=== PATIENT | female | born 1970 | race Caucasian/White ===

== ENCOUNTER → 2017-03-19 | Outpatient (CLI) | payer OTHER ==
[~2017-03-19] MED LIST: ACIDCAP PO; ASCO500C PO; ASPITAB PO; FLUT1SPR5 EACH NARE; IMIT50TA PO; ONETAB13 PO; PROBCAP4 PO; PROP10TA26 PO; SUMA100T2 PO; TOPA25TA8 PO
--- NOTE | 2017-03-21 06:25 | EKG ---
Date Performed: 03/19/2017 Time Performed: 13:20:45 PTAGE: 47 years EKG: Sinus rhythm INCOMPLETE RIGHT BUNDLE BRANCH BLOCK BORDERLINE ECG PREVIOUS TRACING : 03/01/2015 13.52 Compared to prior tracing no significant change DOCTOR: Best Barreto Interpretating Date/Time 03/21/2017 06:23:50
== END ==
LOC: CPRE 12:56
PROVIDERS: ATTEND Obstetrics & Gynecology
DX: Z01.810 Encounter for preprocedural cardiovascular examination (principal); D39.10 Neoplasm of uncertain behavior of unspecified ovary; R97.1 Elevated cancer antigen 125 [CA 125]; R94.31 Abnormal electrocardiogram [ECG] [EKG]
CPT/HCPCS: 93005

== ENCOUNTER 2017-03-21 10:45 | Observation (INO) | payer OTHER ==
[~2017-03-21] VITALS: Ht 170.2 cm; Wt 55.2 kg
[~2017-03-21 10:45] MED LIST changes: -IMIT50TA PO; -PROBCAP4 PO; -PROP10TA26 PO
--- NOTE | 2017-03-21 12:00 | MH ---
cc: YESSI BARRAZA DATE OF ADMISSION 03/21/2017 DATE OF 1970 ADMISSION DIAGNOSIS Right ovarian cyst with recurrent menorrhagia and some dysmenorrhea. HISTORY OF PRESENT ILLNESS The patient is a 47-year-old white female para 3-0-5-3 had endo ablation ablation in 2014. She has had an MRI of the pelvis on 01/18/2017 for right hip and groin pain which showed enlargement of the right ovary over the last previous six months. She also has recurrent bleeding, some dysmenorrhea and elevated CA-125. She is now admitted for surgical evaluation. PAST MEDICAL HISTORY Previous surgery: 1. She had sinus surgery 2002. 2. In 2004 she had two spontaneous abortions and required D&C both times. 3. She had vaginal in 2005. 4. Spontaneous in 2006. No D&C. 5. Spontaneous in 2007 with D&C. 6. Vaginal in 2010. 7. Vaginal 2011. 8. Spontaneous 2014, no D&C 9. In 2014 she had Novasure ablation and laparoscopic tubal. MEDICATIONS 1. Vitamins. 2. Topamax. ALLERGIES None. TRANSFUSIONS None. SOCIAL HISTORY , homemaker. Alcohol, tobacco and drugs none. FAMILY HISTORY Her family history is noncontributory. PHYSICAL EXAMINATION GENERAL: Well-nourished, well-developed white female. VITAL SIGNS: Stable. HEENT: Examination is normal. CHEST: Clear. HEART: Regular rate. BREASTS: Symmetrical. ABDOMEN: Benign. PELVIC: Normal external genitalia and Bartholin's, urethral, [place]'s. Vagina is normal. Cervix is normal. Right adnexa is cystic. Left is normal. ASSESSMENT As above. PLAN She is now admitted for laparoscopy, planned LASH procedure, possible right salpingo-oophorectomy. While in the office I explained the procedures, the risks, benefits and complications and the patient would like to proceed. She would like to preserve left ovary if normal. MD BRET Ma/SHEILA /5:11 PM /11:57 AM LILIAN
[2017-03-21] MEDS ORDERED: ACETAMINOPHEN 1000 MG/100 ML VIAL IV ONE (12:11)
[2017-03-21] MEDS ORDERED: ceFAZolin 2 GM PREMIX 50 ML ONE (12:11)
[2017-03-21 12:12] VITALS: BP 96/69; PULSE 79; RESP 20; TEMP 98.8; O2SAT 98
[2017-03-21] MEDS ORDERED: POVIDONE IODINE 5% (ANTISEPSIS KIT) 4 APPLICATIONS EACH NARE PRN (12:45)
[2017-03-21] MEDS ORDERED: METOPROLOL TARTRATE 25 MG TAB PO PRN (12:45)
[2017-03-21] MEDS ORDERED: INSULIN HUMAN REGULAR 1,000 UNITS/10 ML VIAL SQ PRN (12:45)
[2017-03-21] MEDS ORDERED: SODIUM CHLORID 0.9% 500 ML IV PRN (12:45)
[2017-03-21] MEDS ORDERED: ceFAZolin 2 GM PREMIX 50 ML IV SCH (12:45)
[2017-03-21] MEDS ORDERED: ACETAMINOPHEN 1000 MG/100 ML VIAL IV SCH (12:45)
[2017-03-21] MEDS ORDERED: CHLORHEXIDINE GLUCONATE 2 % 1 PACK (2 CLOTHS) TOPICAL PRN (12:45)
[2017-03-21] MEDS ORDERED: LACTATED RINGER'S 1000 ML IV PRN (12:45)
[2017-03-21] MEDS ORDERED: DEXAMETHASONE SOD PHOS 4 MG/ML VIAL ONE (12:50)
[2017-03-21] MEDS ORDERED: FAMOTIDINE 20 MG/2 ML VIAL ONE (12:50)
[2017-03-21] MEDS ORDERED: MIDAZOLAM HCL 2 MG/2 ML VIAL ONE (12:50)
[2017-03-21] MEDS ORDERED: APREPITANT 40 MG CAP ONE (12:50)
[2017-03-21] MEDS ORDERED: BUPIVACAINE HCL PF 0.5% 30 ML VIAL NERV BLOCK ONE (12:53)
[2017-03-21] MEDS ORDERED: fentaNYL CITRATE 250 MCG/5 ML AMP ONE (12:54)
[2017-03-21] MEDS ORDERED: DICLOFENAC SODIUM 37.5 MG/ML VIAL IV PUSH ONE (12:54)
[2017-03-21] MEDS ORDERED: PROPOFOL 200 MG/20 ML AMP IV ONE (13:05)
[2017-03-21] MEDS ORDERED: NEOSTIGMINE 3 MG/3 ML SYR IV ONE (13:05)
[2017-03-21] MEDS ORDERED: PHENYLEPH/NS 1000 MCG/10 ML SYR IV ONE (13:05)
[2017-03-21] MEDS ORDERED: KETOROLAC TROMETHAMINE 60 MG/2 ML (IM) VIAL IM ONE (13:06)
[2017-03-21] MEDS ORDERED: ONDANSETRON HCL 4 MG/2 ML VIAL IV PUSH ONE (13:06)
[2017-03-21] MEDS ORDERED: LACTATED RINGER'S 1000 ML INJ 1,000 ML IV ONE (13:06)
[2017-03-21] MEDS ORDERED: ONDANSETRON HCL 4 MG/2 ML VIAL IV PRN (14:30)
[2017-03-21] MEDS ORDERED: ONDANSETRON ODT 4 MG TAB PO PRN (14:30)
[2017-03-21] MEDS ORDERED: SODIUM CHLORIDE 0.9% FLUSH 5 ML FLUSH FLUSH PRN (14:30)
[2017-03-21] MEDS ORDERED: diphenhydrAMINE HCL 25 MG CAP PO PRN (14:30)
[2017-03-21] MEDS ORDERED: PROMETHAZINE HCL 25 MG TAB PO PRN (14:30)
[2017-03-21] MEDS ORDERED: HYDROmorphone HCL PF 1 MG/ML VIAL IV PRN (14:30)
[2017-03-21] MEDS ORDERED: METOCLOPRAMIDE HCL 10 MG/2 ML VIAL IV PUSH PRN (14:30)
[2017-03-21] MEDS: KETOROLAC TROMETHAMINE 30 MG/ML (IVP) VIAL IVP SCH ×2 (15:00→22:55)
[2017-03-21] MEDS ORDERED: ONDANSETRON INJ 8 MG in DEXTROSE 5% IN WATER INJ 50 ML IV PRN ×2 (15:15)
[2017-03-21] MEDS ORDERED: DO NOT ADM ANY ANTICOAGULANT DRUGS PRN (15:15)
[2017-03-21] MEDS ORDERED: *morphine SULFATE 8 MG/ML PERIprocedure ONLY ONE (15:18)
[2017-03-21] MEDS: D5-1/2 NS + KCL 20 MEQ INJ 1,000 ML IV SCH ×2 (15:20→22:56)
[2017-03-21] MEDS ORDERED: SUMAtriptan SUCCINATE 50 MG TAB PO PRN (15:45)
[2017-03-21] MEDS: FLUTICASONE PROPIONATE 50 MCG/ACT 16 GM NASAL SPRAY NASAL SCH (15:49)
[2017-03-21 17:00] VITALS: BP 112/78; PULSE 99; RESP 14; TEMP 97.6; O2SAT 98
[2017-03-21] MEDS: DOCUSATE SODIUM 100 MG CAP PO SCH ×2 (17:00→21:00)
[2017-03-21 20:00] VITALS: BP 114/69; PULSE 85; RESP 17; TEMP 96.7; O2SAT 97
[2017-03-21] MEDS: SODIUM CHLORIDE 0.9% FLUSH 5 ML FLUSH FLUSH SCH (21:00)
[2017-03-21] MEDS ORDERED: ZOLPIDEM TARTRATE 5 MG TAB PO PRN (21:00)
[2017-03-21 21:24] LABS: HEMATOCRIT 35.4 % (35.0-46.0); REVIEW FLAG FINAL
[2017-03-21] MEDS: ACETAMINOPHEN 1000 MG/100 ML VIAL IV SCH (22:54)
[2017-03-21] MEDS: TOPIRAMATE 25 MG TAB PO SCH (22:55)
[2017-03-22] VITALS: BP 100/60; PULSE 80; RESP 18; TEMP 96.5; O2SAT 95
[2017-03-22] MEDS: ACETAMINOPHEN 1000 MG/100 ML VIAL IV SCH ×2 (01:28→03:49)
[2017-03-22] MEDS: KETOROLAC TROMETHAMINE 30 MG/ML (IVP) VIAL IVP SCH ×2 (01:28→10:08)
[2017-03-22] MEDS: D5-1/2 NS + KCL 20 MEQ INJ 1,000 ML IV SCH (03:50)
[2017-03-22 04:00] VITALS: BP 96/58; PULSE 80; RESP 18; TEMP 96.9; O2SAT 95
[2017-03-22 06:22] LABS: AUTOMATED NEUTROPHIL # 7.4 TH/MM3 (1.8-7.7); BASOPHIL % 0.3 % (0.0-2.0); HEMATOCRIT 36.3 % (35.0-46.0); HEMO FLAGS DIFF FINAL; LYMPH % 11.1 % (9.0-44.0); MEAN CELL VOLUME 92.9 FL (80.0-100.0); MEAN CORPUSCULAR HEMOGLOBIN 31.4 PG (27.0-34.0); MEAN CORPUSCULAR HGB CONC 33.8 % (32.0-36.0); MONO % 6.8 % (0.0-8.0); NEUT % 81.8 % (16.0-70.0); PLATELET COUNT 194 TH/MM3 (150-450); RED BLOOD COUNT 3.91 MIL/MM3 (4.00-5.30); RED CELL DISTRIBUTION WIDTH 12.9 % (11.6-17.2); WHITE BLOOD COUNT 9.1 TH/MM3 (4.0-11.0)
[2017-03-22 06:40] LABS: BICARBONATE 22.4 MEQ/L (21.0-32.0); POTASSIUM 3.6 MEQ/L (3.5-5.1)
--- NOTE | 2017-03-22 08:22 | HHI.DCPOC ---
Discharge Care Plan Report Symptoms to Your Doctor -Temperate above 100.5 degrees -Redness, of incision or excessive or foul smelling drainage -Unusual pain or calf pain -Increased vaginal bleeding -Painful or difficulty urinating -Feelings of extreme sadness or anxiety after 2 weeks Goals to Promote Your Health * To prevent worsening of your condition and complications * To maintain your health at the optimal level Directions to Meet Your Goals Take your medications as prescribed Follow your dietary instruction Follow activity as directed Ensure plenty of rest for recovery Drink fluids for hydration Keep your appointments as scheduled Take your immunizations and boosters as scheduled If your symptoms worsen call your PCP, if no PCP go to Urgent Care Center or Emergency Room Smoking is Dangerous to Your Health. Avoid second hand smoke Call the 24-hour crisis hotline for domestic abuse at Myles Huerta MD March 22, 2017 08:21
[2017-03-22 08:52] VITALS: BP 106/60; PULSE 60; RESP 20; TEMP 98.4; O2SAT 98
[2017-03-22] MEDS: TOPIRAMATE 25 MG TAB PO SCH (09:49)
[2017-03-22] MEDS: DOCUSATE SODIUM 100 MG CAP PO SCH (09:49)
[2017-03-22] MEDS: FLUTICASONE PROPIONATE 50 MCG/ACT 16 GM NASAL SPRAY NASAL SCH (10:08)
[2017-03-22] MEDS: SODIUM CHLORIDE 0.9% FLUSH 5 ML FLUSH FLUSH SCH (10:08)
--- NOTE | 2017-03-22 21:02 | MP ---
cc: YESSI BARRAZA DATE OF SURGERY 03/21/17 PREOPERATIVE DIAGNOSIS Pelvic pain, right ovarian cyst, recurrent menorrhagia. POSTOPERATIVE DIAGNOSIS Pelvic pain, right ovarian cyst, recurrent menorrhagia. PROCEDURE Laparoscopy, LASH procedure, RSO, left salpingectomy. ANESTHESIA General ET SURGEON Meng Barraza MD TEAM LEADER Sadie Long ESTIMATED BLOOD LOSS 50 mL FLUIDS 1 liter crystalloid. OBJECTIVE FINDINGS Following induction of adequate general endotracheal anesthesia, the patient was prepped and draped supine on the operating table dorsal lithotomy position usual sterile fashion with the bladder being drained via Patten catheterization. Abdomen was opened through a 3-cm curving infraumbilical incision using a knife to cut down through the skin to the fascia. Fascia opened transversely, stripped from the muscles. The peritoneum opened bluntly and palpation was normal. The mini GelPort was placed, laparoscope inserted. A 5 port placed left lower quadrant and a Aeroseal port right lower quadrant. Uterus is about 12 weeks' size, retroverted. The tubes were largely absent from the previous tubal. Left ovary was normal. The right was cystic. The cul-de-sacs were clear. Apendix normal. Working first on the left harmonic scalpel to take the left utero-ovarian pedicle, left round ligament, left broad ligament, left-side bladder flap and the uterine vessels. On the right side used Harmonic scalpel to take right ovarian vessels, right round ligament, right broad ligament, right side bladder flap and right uterine vessels. Harmonic scalpel was now used to amputate the fundus from the cervix. The pouch was used to extract the fundus, right tube and ovary. Residual left tube was removed with Harmonic scalpel and extracted. Irrigation was performed. No bleeding was evident. Low-pressure tests were done. There was no bleeding. Both ureters were inspected for good peristalsis. The operative site was coated with Eviseal. GelPort removed and the peritoneum sutured with 2-0 Vicryl running and the fascia sutured with running locking stitch of 0 Vicryl corner to midline and tied, subcu was closed with running 3-0 Vicryl and skin with running subcuticular 3-0 Monocryl. The scope was now reinserted through lower port sites, inspect the GelPort site which was well closed. No bleeding. No entrapment. Pelvic was inspected, no bleeding. Scope was removed. Ports removed. The small wounds closed with 3-0 Monocryl. Dermabond applied. All counts correct and the patient was awake and taken to recovery room in good condition. MD BRET Ma/ /2:30 PM /8:49 PM LILIAN
== END 2017-03-22 11:34 | disposition home or self-care (01) ==
LOC: HSDC 10:45 → HSDI 14:25 → HOCB 16:15
PROVIDERS: ADMIT Obstetrics & Gynecology; ATTEND Obstetrics & Gynecology
DX: N83.11 Corpus luteum cyst of right ovary (principal); N83.01 Follicular cyst of right ovary; Z98.51 Tubal ligation status
CPT/HCPCS: 58542; 80048; 85014; 85018; 85025; 88307; 94150; G0378; J0131; J0690; J1100; J1885; J2250; J2270; J2370; J2405; J2710; J3010; J3480; J7120; J8501; J1130